=== PATIENT | male | born 1960 | race Caucasian/White ===

== ENCOUNTER 2016-06-05 13:23 | Emergency (ER) | payer SELFPAY ==
[2016-06-05 13:37] VITALS: BP 141/89; PULSE 99; TEMP 97.8; BMI 31.6
[2016-06-05 13:48] LABS: AUTOMATED BASOPHIL 0.7 % (0-2); AUTOMATED EOSINOPHIL 1.1 % (0-5); AUTOMATED NEUTROPHIL 56.2 % (45-76); MPV 7.1 fL (7.4-10.4)
[2016-06-05 14:04] LABS: BLOOD UREA NITROGEN 20 MG/DL (9-20); CALC CORRECTED 9.2 MG/DL (8.4-10.2); CALCIUM 8.9 MG/DL (8.4-10.2); CALCULATED OSMOLALITY 271 MOs/Kg (270-290); CHLORIDE 100 mEq/L (98-107); GLUCOSE 375 MG/DL (70-99); SODIUM LEVEL 131 mEq/L (137-146)
== END 2016-06-05 15:15 | disposition left against medical advice (07) ==
LOC: ED 13:23
DX: R11.2 Nausea with vomiting, unspecified (principal)
CPT/HCPCS: 80053; 82962; 85025; 99281